=== PATIENT | female | born 1955 | race African-American/Black ===

== ENCOUNTER 2020-09-10 12:57 | Outpatient (REF) | payer OTHER, SELFPAY ==
--- NOTE | ~2020-09-10 | MM_ITS ---
EXAMINATION: MM SCREENING DIGITAL BREAST TOMOSYNTHESIS, BILATERAL CLINICAL INFORMATION: Screening. Asymptomatic. The lifetime risk of breast cancer based on the Tyrer-Cuzick Model is 4%. COMPARISON: Mammography: 07/09/2018, 05/24/2017 TECHNIQUE: Digital breast tomosynthesis is performed in both the craniocaudal and mediolateral oblique views along with computer-aided detection (CAD). Synthesized 2D images are generated from the tomosynthesis. FINDINGS: There are scattered areas of fibroglandular density (ACR BI-RADS breast composition Category b). There is fine fibronodular parenchymal pattern is similar to prior studies. The left breast has smooth dominant nodule 0.8 cm central 11:00 position increased from prior exams. Patient will be recalled to further characterize. The remainder the breasts show no significant mass or architectural abnormality. There are scattered punctate and some coarse calcifications again seen. MM/MM tomosynthesis screening BI IMPRESSION: 1. Left: Dominant nodule 11:00 position, 0.8 cm. 2. Right: No mammographic evidence of malignancy. ASSESSMENT: BI-RADS 0: Incomplete - Need Additional Imaging Evaluation RECOMMENDATION: 1. Targeted left breast ultrasound. 2. Radiology department staff will contact the patient for additional imaging. This patient's information was entered into a reminder system with a target due date for their next mammogram.
== END 2020-09-10 12:58 | disposition home or self-care (01) ==
LOC: HO.MAMMO 12:57
PROVIDERS: PCP General Practice; Visit Provider General Practice
DX: Z12.31 Encounter for screening mammogram for malignant neoplasm of breast (principal)
CPT/HCPCS: 77063; 77067

== ENCOUNTER 2020-09-13 13:01 | Outpatient (REF) | payer OTHER, SELFPAY ==
--- NOTE | ~2020-09-13 | US_ITS ---
EXAMINATION: US DIAGNOSTIC ULTRASOUND BREAST, LEFT CLINICAL INFORMATION: Circumscribed density superior medial aspect of the left breast.. COMPARISON: September 10, 2020 and studies dating back to October 12, 2011. TECHNIQUE: Ultrasound of the breast is performed with real-time buchanan scale imaging and color Doppler. FINDINGS: At the 11:00 position approximately 5 cm from the nipple there is a 7 x 7 x 7 mm cyst without solid component or internal vascularity. There is a smooth back wall and increased through sound transmission present. Adjacent to this there is a smaller 3 mm circumscribed hypoechoic lesion with increased through sound transmission and no internal vascularity also consistent with cyst. Results are discussed with the patient at time of visit. US/US breast LT limited IMPRESSION: Simple appearing 7 mm cyst corresponds in size and location to the mammographic finding. ASSESSMENT: BI-RADS 2: Benign RECOMMENDATION: Routine annual mammography screening due in 12 months. This patient's information was entered into a reminder system with a target due date for their next mammogram.
== END 2020-09-13 13:02 | disposition home or self-care (01) ==
LOC: HO.MAMMO 13:01
PROVIDERS: Visit Provider General Practice
DX: N63.22 Unspecified lump in the left breast, upper inner quadrant (principal)
CPT/HCPCS: 76642

== ENCOUNTER 2023-02-23 09:46 | Outpatient (REF) | payer MEDICARE, MEDICAID, SELFPAY ==
--- NOTE | ~2023-02-23 | MM_ITS ---
EXAMINATION: MM SCREENING DIGITAL BREAST TOMOSYNTHESIS, BILATERAL CLINICAL INFORMATION: Screening. Asymptomatic. The lifetime risk of breast cancer based on the Tyrer-Cuzick Model is 3.1%. COMPARISON: Mammography: 09/10/2020, 07/09/2018, 05/24/2017, and dating back to 2013. TECHNIQUE: Digital breast tomosynthesis is performed in both the craniocaudal and mediolateral oblique views along with computer-aided detection (CAD). Synthesized 2D images are generated from the tomosynthesis. FINDINGS: The breasts are heterogeneously dense, which may obscure small masses (ACR BI-RADS breast composition Category c). Patient has a stable somewhat nodular appearing parenchymal pattern in both breasts. The overall parenchymal pattern is unchanged. There are unchanged benign calcifications in both breasts right greater than left. Previously seen oval masses correlating with previously characterized cysts at the 11:00 axis left breast are no longer well seen. Stable probable intramammary lymph nodes supralateral left breast, without change. No suspicious masses, suspicious calcifications, or areas of architectural distortion are identified in either breast. MM/MM tomosynthesis screening BI IMPRESSION: No mammographic evidence of malignancy. Stable benign findings both breasts. ASSESSMENT: BI-RADS BI-RADS 2 - Benign Findings RECOMMENDATION: Routine annual mammography screening. 1 year F/U This examination should not preclude the clinical evaluation of a suspicious palpable abnormality. This patient's information was entered into a reminder system with a target due date for their next mammogram.
== END 2023-02-23 09:47 | disposition home or self-care (01) ==
LOC: HO.MAMMO 09:46
PROVIDERS: PCP General Practice; Visit Provider General Practice
DX: Z12.31 Encounter for screening mammogram for malignant neoplasm of breast (principal)
CPT/HCPCS: 77063; 77067

== ENCOUNTER → 2023-02-23 10:15 | Outpatient (BNV) | payer MEDICARE, MEDICAID, SELFPAY | PROVIDERS: PCP General Practice; Visit Provider Radiology Diagnostic Radiology | DX: Z12.31 Encounter for screening mammogram for malignant neoplasm of breast (principal) | CPT/HCPCS: 77063; 77067 ==

== ENCOUNTER 2023-12-03 11:58 | Outpatient (REF) | payer MEDICARE, MEDICAID, SELFPAY ==
[2023-12-03 13:44] LABS: Estimated Average Glucose 128 mg/dL; Hemoglobin A1C 149.2091 umol/L; Hemoglobin A1c % 6.1 % (<6.0)
[2023-12-03 13:57] LABS: Alanine Aminotransferase 17 U/L (0-31); Albumin Level 4.6 g/dL (3.5-5.0); Alkaline Phosphatase 75 U/L (39-117); Anion Gap 14 (12-20); Aspartate Amino Transferase 21 U/L (5-31); Bilirubin Total 0.6 mg/dL (0.0-1.0); Blood Urea Nitrogen 8 mg/dL (9-16); Calcium 10.1 mg/dL (8.4-10.2); Carbon Dioxide 27 mmol/L (22-29); Chloride 105 mmol/L (96-108); Cholesterol 212 mg/dL (<200); Estimated Glomerular Filt Rate > 60; Glucose Random 103 mg/dL (60-115); HDL Cholesterol 70 mg/dL (>40); LDL Cholesterol Calculated 121 mg/dL (<100); Potassium 3.9 mmol/L (3.3-5.1); Sodium 142 mmol/L (135-145); Triglycerides 109 mg/dL (<150)
[2023-12-04 10:50] LABS: ~HepC Num1 0.14 S/CO (0.00-0.79); ~Hepatitis C Antibody Nonreactive (Nonreactive)
== END 2023-12-03 11:59 | disposition home or self-care (01) ==
LOC: HO.HHCL 11:58
PROVIDERS: Visit Provider General Practice
DX: Z13.89 Encounter for screening for other disorder (principal)
CPT/HCPCS: 36415; 80053; 80061; 83036; 84443; 86803

== ENCOUNTER 2023-12-03 13:43 | Outpatient (REF) | payer MEDICARE, MEDICAID, SELFPAY ==
[2023-12-03 16:12] LABS: Appearance Urine Clear; Color Urine Yellow; Glucose Urine UA Negative (Negative); Leukocyte Esterase Urine Small (1+) (Negative); Nitrite Urine Negative (Negative); PH 7.5 (5.0-9.0); Specific Gravity - Urine <= 1.005 (1.005-1.025); UMIC TRIGGER UACC YES; Urine Blood Negative (Negative); Urine Ketones Negative (Negative); Urine Protein Negative (Neg-Trace)
[2023-12-03 16:22] LABS: Bacteria Urine None Seen (None Seen); Hyaline Casts Urine 0-2 /LPF (0-2); RBC Urine 0-2 /HPF (0-2); Squamous Epithelial Cell Urine 0-2 /HPF (0-2); UACC Culture Trigger YES; WBC Urine 0-5 /HPF (0-5)
== END 2023-12-03 13:44 | disposition home or self-care (01) ==
LOC: HO.HHCL 13:43
PROVIDERS: Visit Provider General Practice
DX: I10 Essential (primary) hypertension (principal); R82.90 Unspecified abnormal findings in urine
CPT/HCPCS: 36415; 80053; 80061; 81001; 83036; 84443; 86803; 87086